=== PATIENT | female | born 1970 | race Caucasian/White ===

== ENCOUNTER → 2020-04-08 | Outpatient (CLI) | payer OTHER | END | disposition home or self-care (01) | LOC: TOM 13:33 | PROVIDERS: ATTEND General Practice | DX: J44.9 Chronic obstructive pulmonary disease, unspecified (principal); Z03.818 Encounter for observation for suspected exposure to other biological agents ruled out ==

== ENCOUNTER 2021-02-01 11:37 | Outpatient (CLI) | payer OTHER | END 2021-02-01 11:49 | disposition home or self-care (01) | LOC: TOM 11:37 | DX: R91.1 Solitary pulmonary nodule (principal) ==

== ENCOUNTER 2022-01-25 14:28 | Outpatient (CLI) | payer OTHER | END 2022-01-25 14:30 | disposition home or self-care (01) | LOC: TOM 14:28 | DX: R91.8 Other nonspecific abnormal finding of lung field (principal) ==